=== PATIENT | male | born 1965 | race Caucasian/White ===

== ENCOUNTER 2021-08-25 03:15 | Emergency (ER) | payer OTHER, SELFPAY ==
[2021-08-25 03:16] VITALS: BP 156/88; PULSE 78; RESP 18; TEMP 35.9; O2SAT 96; BMI 33.3
[2021-08-25] MEDS: 0.9% Normal Saline 1,000 ML 999 ML IV (05:20)
[2021-08-25] MEDS: Ondansetron 4 MG/2 ML Vial IV (05:21)
[2021-08-25] MEDS: Morphine 4 MG/ML Syringe IV (05:22)
[2021-08-25 05:23] VITALS: RESP 16
[2021-08-25 05:26] LABS: Bacteria 0 SEEN /hpf (None Seen); Mucous, Urine 0 SEEN /hpf (<or=2+); Squamous Epithelial Cells - UA 0 SEEN /hpf (0-5); White Blood Cells 0 SEEN /hpf (0-5)
[2021-08-25 05:27] LABS: Absolute Lymphocyte Count 1.62 X10^3/uL (0.83-4.51); Absolute Neutrophil Count 2.8 X10^3/uL (2.0-7.7); Basophil# 0.02 X10^3/uL; Basophil% 0.4 % (0-1); Eosinophil# 0.17 X10^3/uL; Eosinophils% 3.3 % (0-5); Hematocrit 46.5 % (40-54); Hemoglobin 15.7 g/dL (13.0-16.5); Lymphocyte # 1.62 X10^3/ul (0.83-4.51); Lymphocyte % 31.8 % (19-41); Mean Corp Hgb Conc 33.8 g/dL (32-36); Mean Corpuscular Hgb 30.6 pg (27.0-32.0); Mean Corpuscular Volume 90.6 fL (80-94); Mean Platelet Vol. 10.5 fl (6.2-12.0); Monocyte# 0.48 X10^3/uL; Monocyte% 9.4 % (0-10); NRBC Flagged by Analyzer 0 % (0-5); Neutrophil # 2.78 X10^3/uL (2.7-7.7); Neutrophil % 54.7 % (47-70); Platelet Count 227 K/mm3 (150-450); RBC Distribution Width CV 12.2 % (11.6-14.6); RBC Distribution Width SD 40.7 fl (35.1-43.9); Red Blood Count 5.13 M/mm3 (4.6-6.2); White Blood Count 5.1 K/mm3 (4.4-11.0)
[2021-08-25 05:32] LABS: Color, Urine Yellow (Yellow); Glucose, Dipstick Normal (Normal); Ketone-Dipstick Negative (Negative); Leukocyte Esterase-Dipstick Negative /ul (Negative); Nitrite-Dipstick Negative (Negative); Occult Blood-Urine 250 /ul (Negative); Protein-Dipstick Negative (Negative); Specific Gravity, Urine 1.025 (1.002-1.030); Urine Bilirubin Dipstick Negative (Negative); Urine Clarity Clear (Clear); Urine Urobilinogen Normal (Normal)
[2021-08-25 05:35] LABS: Anion Gap 8 (5-15); BUN 20 mg/dL (7-18); BUN/Creat Ratio 17.5 RATIO (10-20); Calcium,Total 10.1 mg/dL (8.5-10.1); Chloride 105 mmol/L (98-107); Creatinine, Serum 1.14 mg/dL (0.70-1.30); EST Glomerular Filtration Rate 70 mL/min (>60); Est Glom Filt Rate - Afr Amer 85 mL/min (>60); Estimated Creatinine Clearance 59.14 ml/min; Glucose 129 mg/dL (74-106); Potassium 3.8 mmol/L (3.5-5.1); Sodium Level 140 mmol/L (136-145)
--- NOTE | 2021-08-25 05:43 | CT_ITS ---
HISTORY: right flank pain TECHNIQUE: Multiple axial images were obtained of the abdomen and pelvis without oral or IV contrast. Coronal reformats obtained. A radiation dose optimization technique was used for this scan. COMPARISON: None FINDINGS: # of images incl. paperwork: [id number] LUNG BASES: Mild dependent atelectasis. LIVER T BILIARY TRACT: Unremarkable gallbladder. No acute hepatic finding. ADRENAL GLANDS: Unremarkable. SPLEEN: Unremarkable. PANCREAS: Unremarkable. KIDNEYS/URETERS/BLADDER: Mild right hydronephrosis and perinephric inflammatory stranding with 3 mm proximal right ureteral stone just distal to the ureteropelvic junction. Additional 2 mm nonobstructive right renal stone. Normal left kidney without nephrolithiasis. The remainder of the ureters are unremarkable. Unremarkable bladder. LYMPH NODES: No suspicious adenopathy. STOMACH, SMALL AND LARGE BOWEL: No acute gastric finding. No small bowel obstruction or gross wall thickening. Normal appendix. Distal colonic diverticulosis with minimal nonspecific stranding at the sigmoid colon. 2 and 4 mm adjacent lymph nodes are also seen adjacent to the sigmoid colon, axial image 80. ASCITES/FREE AIR: No free fluid or free air. AORTA: Unremarkable. PELVIS: Unremarkable. MUSCULOSKELETAL: No acute osseous finding. CT/Abdomen/Pelvis without Cont IMPRESSION: 3 mm proximal ureteral stone with mild hydronephrosis and perinephric inflammation. Additional nonobstructive right renal stone also noted. Distal colon diverticulosis with trace inflammatory stranding and nonspecific subcentimeter lymph nodes which could represent sequela of prior or current uncomplicated diverticulitis. Colon is decompressed, limiting wall evaluation. Correlate with exam. Follow-up colonoscopy or water-soluble oral and IV contrast CT is recommended in 6 weeks to reassess. Individualized dose optimization techniques were used for this CT. at 0702 Reported and signed by: Braeden Baez MD Electronically Signed: Braeden Baez MD at 7:01 EST Tel , Service support ,
[2021-08-25 05:44] LABS: Red Blood Cells-Urine 25-50 SEEN /hpf (0-5)
[2021-08-25] MEDS: Ketorolac 30 MG/ML Syringe IV (07:37)
[2021-08-25 07:40] VITALS: BP 129/74; PULSE 64; RESP 15; O2SAT 98
--- NOTE | 2021-08-25 08:06 | EX.ED.DYSGE1 ---
HPI History of Present Illness Chief Complaint: Abd Pain Narrative Narrative: Patient is a 56-year-old male who states that over the last 3 to 4 days he has been having increasing abdominal pain. He states that the pain is now radiating from his lower abdomen towards his right back. He denies any trauma or excessive activity. He denies any hematuria or dysuria. Patient also reports he has had constipation for the past 1 to 2 days. He states this is not normal for him. He reports that based on the worsening pain he could not sleep and therefore comes in for evaluation. [facility] Medical History (Updated 08/25/21 @ 08:[address] Maxi Ho, DO) High cholesterol Hypertension Home Medications amoxicillin-pot clavulanate [Augmentin] 1 tab PO BID 7 Days #14 tab 08/25/21 [Rx Last Taken Unknown] ketorolac 10 mg PO Q6H PRN 5 Days #20 tab 08/25/21 [Rx Last Taken Unknown] oxycodone-acetaminophen [Endocet] 1 tab PO Q6H PRN 3 Days #12 tab 08/25/21 [Rx Last Taken Unknown] tamsulosin [Flomax] 0.4 mg PO DAILY #14 cap 08/25/21 [Rx Last Taken Unknown] Allergy/AdvReac Type Severity Reaction Status Date / Time No Known Allergies Allergy Verified 08/25/21 03:19 Social History Smoking Status: Former smoker ROS ROS ED Constitutional Constitutional ED: Denies chills or fever(s) ENT ENT ED: Denies sore throat Cardiovascular Cardiovascular: Denies chest pain Respiratory/Chest Respiratory/Chest: Denies cough or dyspnea Gastrointestinal Gastrointestinal: Reports abdominal pain and constipation; Denies diarrhea, nausea or vomiting Genitourinary Genitourinary ED: Denies dysuria or hematuria Musculoskeletal Musculoskeletal: Reports back pain; Denies myalgias Integumentary Denies rash Neurologic Neurologic: Denies headache(s) Hematologic/Lymphatic Hematologic/Lymphatic: Denies easy bleeding or easy bruising EXAM Physical Exam Const Vital Signs: 08/25/21 03:16 08/25/21 05:23 08/25/21 07:40 Temperature 96.7 F L Temperature Source Temporal Pulse Rate 78 64 Respiratory Rate 18 16 15 Blood Pressure 156/88 H 129/74 H Blood Pressure Mean 110 92 Pulse Ox 96 98 Oxygen Delivery Method Room Air Room Air Positive well nourished and well developed General Appearance ED: well developed HEENT Reports moist mucous membranes Eyes PERRL and EOMs intact bilaterally Neck supple Resp normal respiratory effort and clear to auscultation bilaterally Cardio regular rate and regular rhythm GI non-distended GI Narrative: Mild pain with palpation in the right sided abdomen without voluntary guarding or rigidity. No pulsatile mass. Bowel sounds are hypoactive Palpation: soft Back/Spine Back/Spine Narrative: Positive right CVA pain Extremity normal to inspection Neuro oriented x3 and CN's II-XII intact bilaterally Sensorium / Orientation: alert Motor Exam: strength 5/5 throughout Psych mental status grossly normal Skin no rashes or lesions noted MDM MDM MDM Narrative Medical decision making narrative: Patient's history and exam is most consistent with kidney stone and secondary to this I elected perform basic laboratory studies. Urine showed large amount of blood without infection so a noncontrast CT was obtained. This confirmed a 3 mm stone in the distal UVJ causing hydroureter nephrosis. Despite this he does not have uroseptic or acute kidney injury changes. There is also question of acute sigmoid diverticulitis. As the patient has constipation this does fit his presentation as well. However as he is not perforated or showing signs obstruction there is no need for further work-up. Patient be placed on the Flomax pain medication and antibiotics secondary to the diverticulitis. He will follow up with urology discussed need for stent placement based on the obstruction but as he does not have STACY or uroseptic changes is safe for discharge. Lab Data Attestation: I reviewed the patient's lab results. Labs: Laboratory Results - last 24 hr 08/25/21 08/25/21 08/25/21 03:30 03:30 03:30 WBC 5.1 RBC 5.13 Hgb 15.7 Hct 46.5 MCV 90.6 MCH 30.6 MCHC 33.8 RDW Std Deviation 40.7 RDW Coeff of Piper 12.2 Plt Count 227 MPV 10.5 Immature Gran % (Auto) 0.400 Neut % (Auto) 54.7 Lymph % (Auto) 31.8 Donley % (Auto) 9.4 Eos % (Auto) 3.3 Baso % (Auto) 0.4 Absolute Neuts (auto) 2.8 Absolute Lymphs (auto) 1.62 Nucleated RBC % 0 Sodium 140 Potassium 3.8 Chloride 105 Carbon Dioxide 27.0 Anion Gap 8 BUN 20 H Creatinine 1.14 Estim Creat Clear Calc 59.14 Est GFR (MDRD) Af Amer 85 Est GFR (MDRD) Non-Af 70 BUN/Creatinine Ratio 17.5 Glucose 129 H Calcium 10.1 Urine Color Yellow Urine Clarity Clear Urine pH 5.[address] 1.025 Urine Protein Negative Urine Glucose (UA) Normal Urine Ketones Negative Urine Occult Blood 250 H Urine Nitrite Negative Urine Bilirubin Negative Urine Urobilinogen Normal Ur Leukocyte Esterase Negative Urine RBC 25-50 SEEN Urine WBC 0 SEEN Ur Squamous Epith Cells 0 SEEN Urine Bacteria 0 SEEN Urine Mucus 0 SEEN Radiography Diagnostic Testing: Clinical Impression(s) from Imaging Studies Abdomen/Pelvis CT 08/25/21 05:43 IMPRESSION: 3 mm proximal ureteral stone with mild hydronephrosis and perinephric inflammation. Additional nonobstructive right renal stone also noted. Distal colon diverticulosis with trace inflammatory stranding and nonspecific subcentimeter lymph nodes which could represent sequela of prior or current uncomplicated diverticulitis. Colon is decompressed, limiting wall evaluation. Correlate with exam. Follow-up colonoscopy or water-soluble oral and IV contrast CT is recommended in 6 weeks to reassess. Individualized dose optimization techniques were used for this CT. at 0702 Reported and signed by: Braeden Baez MD Electronically Signed: Braeden Baez MD at 7:01 EST Tel , Service support , Discharge Plan Triage Chief Complaint: Abd Pain ED Provider: Maxi Ho Dx/Rx/DC Orders Clinical Impression: Kidney stone on right side, Renal colic, Diverticulitis Instructions: Kidney Stones Expectant Tx, ED Diverticulitis Prescriptions: New oxycodone-acetaminophen [Endocet] 5-325 mg tablet 1 tab PO Q6H PRN (Reason: pain) 3 Days Qty: 12 RF: 0 tamsulosin [Flomax] 0.4 mg capsule 0.4 mg PO DAILY Qty: 14 RF: 0 amoxicillin-pot clavulanate [Augmentin] 875-125 mg tablet 1 tab PO BID 7 Days Qty: 14 RF: 0 ketorolac 10 mg tablet 10 mg PO Q6H PRN (Reason: pain) 5 Days Qty: 20 RF: 0 Primary Care Provider: Deb Fernandez Referrals: Deb Fernandez RN [Primary Care Provider] - Andrew Vera MD [STAFF PHYSICIAN] - 3-5 Days if not improving Activity Restrictions/Additional Instructions: Is return to the ER if you develop a fever over 100.4 or your pain is not controlled with outpatient medication Disposition Disposition: Home, Self Care Discharge Date/Time: 08/25/21 08:25
[2021-08-25] MEDS: Amox/Clavulanate 875 MG Tablet PO (08:24)
[2021-08-25 08:25] VITALS: BP 124/77; PULSE 64; RESP 15; O2SAT 98
== END 2021-08-25 08:25 | disposition home or self-care (01) ==
PROVIDERS: Emergency Provider Emergency Medicine; Visit Provider Emergency Medicine
DX: N13.2 Hydronephrosis with renal and ureteral calculous obstruction (principal); K57.32 Diverticulitis of large intestine without perforation or abscess without bleeding; Z87.891 Personal history of nicotine dependence
CPT/HCPCS: 74176; 80048; 81001; 85025; 96361; 96374; 96375; 99284; A4216; J2405

== ENCOUNTER 2021-09-16 06:01 | Day surgery (SDC) | payer OTHER, SELFPAY ==
[2021-09-16 06:40] VITALS: BP 127/85; PULSE 67; RESP 16; TEMP 36.7; O2SAT 99; BMI 31.7
[2021-09-16] MEDS: Lactated Ringers 1,000 ML 15 ML IV (06:46)
[2021-09-16] MEDS: Cefazolin 2 GM in 0.9% Normal Saline 100 ML IV (07:34)
--- NOTE | 2021-09-16 08:06 | OP.PCM_ITS ---
Report of Operation Date of Procedure: 09/16/21 Pre-Operative Diagnosis: Right ureteral calculi Post-Operative Diagnosis: Same Surgery/Procedure Performed:: Cystoscopy right retrograde pyelogram interpretation fluoroscopic images and right ureteroscopy diagnostic. No stent Description of Surgical Findings:: 56-year-old gentleman who has a stone in the mid right ureter not been able to pass it spontaneously presents today to the hospital for treatment of the stone. In the preoperative area we talked about the possible treatment today we could do shockwave lithotripsy or ureteroscopy depending on where the stone is located in her stent is possible he may need a stent and if he does demand that the stent removed next week we also talked about the possibility of multiple treatments for the stone if the stone is stuck or can get to the stone and possible to do a balloon dilation. Patient was taken back to the operating room after smooth induction of general anesthesia he was placed supine on the lithotripter table we then used fluoroscopy to explore the ureter on the right side was started at the proximal ureter worked our way down we could not identify any radiopaque stones along the course of the ureter as seen prior on CT scan. As we scan down through we were not definitive that there was no stone so I decided to do a cystoscopy and a retrograde pyelogram. Penis and testicles were prepped and draped in usual [facility] fashion I went into the bladder with a 21 [facility] rigid cystourethroscope the entire length the urethra was normal the prostate was normal the verumontanum was normal prostate only slightly large no obstruction inside the bladder there was no tumors or stones the trigone was normal the bladder monahan are normal no tumors were identified no stones inside the bladder. Identified then the left ureteral orifice and I did not identify the right ureteral orifice I used a 5 [facility] open-ended catheter with a 0.038 Glidewire and cannulated the right ureter I then advanced the open-ended catheter into the right ureter performed a retrograde pyelogram could see contrast going up the ureter first I used 50-50 dilution there was a questionable area and a kink in the ureter where there was a shadow defect which could be a stone so I decided to do explore with ureteroscopy. I left the wire in place and then over the wire I went in with an 8 [facility] flexible Olympus ureteroscope was able to get into the ureter very easily went up into the kidney explore the kidney upper pole midpole lower pole of the calyces were explored and no major stones were seen I work my way down all through the ureter and the entire length the ureter was clear of any major stone fragments there was a lot of inflammation in the distal ureter where an apparent stone had been stuck but had past. Since there was no major obstruction along the course of the ureter and it was cleared retrograde look fine this point the stone in the past we decided not to do any further procedures he did not have a stent placed I drained the patient's bladder remove the cystoscope and went spoke to the patient's family regarding the status. Surgeon: lizabeth Type of Anesthesia: General Drains: none Admit VTE Documentation VTE Present on Admission: No VTE Mechan Device Prophylaxis: SCD's VTE Pharm Prophylaxis ordered?: No
--- NOTE | 2021-09-16 08:06 | PCM.HP.STD ---
HPI - General HPI Narrative RADHA MONAHAN, is a 56 M who presents for treatment of a 6mm stone in the right ureter. Does not think he passed stone. PFSH Medical History (Updated 09/09/21 @ 13:40 by Trisha Baker) Alcohol use Anxiety Arthritis Cardiology follow-up encounter Former smoker High cholesterol History of echocardiogram History of edema History of stress test Hx of closed fracture of nasal bones Hypertension Injury of head and neck Leg cramps Loss of consciousness Wears glasses Home Medications ketorolac 10 mg PO Q6H PRN 5 Days #20 tab 08/25/21 [Rx Last Taken Unknown] oxycodone-acetaminophen [Endocet] 1 tab PO Q6H PRN 3 Days #12 tab 08/25/21 [Rx Last Taken Unknown] tamsulosin [Flomax] 0.4 mg PO DAILY #14 cap 08/25/21 [Rx Last Taken Unknown] amlodipine 5 mg PO DAILY 09/09/21 [History Last Taken Unknown] atorvastatin 20 mg PO QHS 09/09/21 [History Last Taken Unknown] cholecalciferol (vitamin D3) 100 mcg PO DAILY 09/09/21 [History Last Taken Unknown] fluticasone propionate [Flonase Allergy Relief] 1 spray INTRANASAL DAILY 09/09/21 [History Last Taken Unknown] loratadine [Claritin] 10 mg PO DAILY 09/09/21 [History Last Taken Unknown] spironolactone 25 mg PO DAILY 09/09/21 [History Last Taken Unknown] zinc 50 mg PO DAILY 09/09/21 [History Last Taken Unknown] Allergy/AdvReac Type Severity Reaction Status Date / Time No Known Allergies Allergy Verified 09/09/21 11:14 Surgical History (Updated 09/09/21 @ 13:40 by Trisha Baker) Hx of inguinal hernia repair Hx of total hip arthroplasty Social History Smoking Status: Former smoker Vital Signs Vital Signs Vital Signs: 09/16/21 06:38 09/16/21 06:40 Temperature 98.1 F Temperature Source Temporal Pulse Rate 67 Respiratory Rate 16 Respiratory Pattern Normal Blood Pressure 127/85 H Blood Pressure Mean 99 Blood Pressure Source Monitor Blood Pressure Position Semi-Fowlers Blood Pressure Location Right Arm Pulse Ox 99 Oxygen Delivery Method Room Air Weight Weight: 83.915 kg Body Mass Index (BMI) 31.7 Results Lab / Micro Data Micro: Microbiology 01/25/22 16:38 Interface Orders SARS-CoV-2 Antigen (Rapid) - Final
--- NOTE | 2021-09-16 08:10 | PCM.DC ---
Discharge Instructions Diet Discharge Diet: No restrictions Activity Discharge Activity: Return to Normal Activity and May Not Drive (while taking narcotic pain medications.) Dressing / Incision Call your doctor if you observe: Fever of 101 or Higher Follow Up Care Please Follow Up With: Andrew Vera MD When: Call [phone] for an appointment Test Results: Test results from this visit will be discussed in further detail at your follow-up appointment, if applicable. Discharge Plan Admission Primary Reason for Your Visit: stone Attending Provider: Andrew Vera Primary Care Provider: Deb Fernandez Discharge Orders/Prescriptions Prescriptions: Continued oxycodone-acetaminophen [Endocet] 5-325 mg tablet 1 tab PO Q6H PRN (Reason: pain) 3 Days Qty: 12 RF: 0 tamsulosin [Flomax] 0.4 mg capsule 0.4 mg PO DAILY Qty: 14 RF: 0 ketorolac 10 mg tablet 10 mg PO Q6H PRN (Reason: pain) 5 Days Qty: 20 RF: 0 atorvastatin 20 mg Tablet 20 mg PO QHS RF: 0 amlodipine 5 mg Tablet 5 mg PO DAILY RF: 0 spironolactone 25 mg Tablet 25 mg PO DAILY RF: 0 zinc 50 mg Tablet 50 mg PO DAILY RF: 0 fluticasone propionate [Flonase Allergy Relief] 50 mcg/actuation [place],Suspension 1 spray INTRANASAL DAILY RF: 0 loratadine [Claritin] 10 mg Tablet 10 mg PO DAILY RF: 0 cholecalciferol (vitamin D3) 100 mcg (4,000 unit) Capsule 100 mcg PO DAILY RF: 0 Referrals / Follow Up: Deb Fernandez RN [Primary Care Provider] - Disposition Disposition (needs filled in before D/C Order can be placed): Home, Self Care
[2021-09-16 08:16] VITALS: BP 127/85; BP 135/82; PULSE 73; RESP 16; TEMP 36.2; O2SAT 95
[2021-09-16 08:30] VITALS: BP 127/85; BP 138/103; PULSE 67; RESP 16; O2SAT 99
[2021-09-16] MEDS: Ketorolac 15 MG/ML Vial IV (08:37)
[2021-09-16 08:42] VITALS: BP 127/85; BP 129/91; PULSE 62; RESP 16; TEMP 36.3; O2SAT 96
[2021-09-16 09:08] VITALS: BP 127/85; BP 134/89; PULSE 66; RESP 16; TEMP 36.1; O2SAT 96
== END 2021-09-16 23:59 | disposition home or self-care (01) ==
LOC: SDC 06:01 → AC 06:02
PROVIDERS: Referring Provider Urology; Visit Provider Urology
PROC: 3E1K88Z Irrigation of Genitourinary Tract using Irrigating Substance, Via Natural or Artificial Opening Endoscopic (ICD-10-PCS; CPT 50590; principal; 2021-09-16 07:20)
DX: N20.1 Calculus of ureter (principal); I10 Essential (primary) hypertension; E78.00 Pure hypercholesterolemia, unspecified; M19.90 Unspecified osteoarthritis, unspecified site; F41.9 Anxiety disorder, unspecified; Z79.899 Other long term (current) drug therapy; Z87.891 Personal history of nicotine dependence; Z20.822 Contact with and (suspected) exposure to COVID-19
CPT/HCPCS: 52005; 00910; 87426; J7120; C1769; J2405